=== PATIENT | female | born 1980 | race Caucasian/White ===

== ENCOUNTER → 2024-06-12 | Outpatient (CLI) | payer BC, SELFPAY ==
[2024-06-12 08:39] LABS: Basophils % (Auto) 0 % (0-2.5); Eosinophils # (Auto) 0.1 Thou/mm3 (0.0-0.5); Eosinophils % (Auto) 1 % (0-10); Hematocrit 42.8 % (36.0-46.0); Hemoglobin 15.7 g/dL (12.0-16.0); Immature Granulocytes % (Auto) 1 % (0-0); Immature Granulocytes Auto 0.03 Thou/mm3 (0.00-0.00); Lymphocytes # (Auto) 1.6 Thou/mm3 (1.0-4.8); Lymphocytes % (Auto) 27 % (10-50); Mean Corpuscular HGB Conc 36.7 g/dl (31.0-37.0); Mean Corpuscular Volume 85 fL (80-100); Monocytes # (Auto) 0.4 Thou/mm3 (0.0-0.8); Monocytes % (Auto) 6 % (0-12); Neutrophils # (Auto) 3.9 Thou/mm3 (1.8-7.7); Neutrophils % (Auto) 65 % (37-80); Nucleated Red Blood Cell % 0 /100 WBC (0); Platelet Count 261 Thou/mm3 (140-440); RDW Standard Deviation 36.8 fL (36.4-46.3); Red Blood Count 5.06 Miln/mm3 (4.00-5.20)
[2024-06-12 08:59] LABS: Glucose Estimated Average 243 mg/dL (80-131); Hemoglobin A1C 10.1 % Hgb (4.8-6.0)
[2024-06-12 10:03] LABS: Alanine Aminotransferase 29 U/L (10-49); Albumin, Serum 4.4 gm/dL (3.5-5.0); Albumin/Globulin Ratio 1.7 (1.2-2.2); Alkaline Phosphatase 66 U/L (46-116); Anion Gap 10 (7-16); Aspartate Amino Transferase 29 U/L (0-34); BUN/Creatinine Ratio 11 Ratio (12-20); Bilirubin,Total 0.9 mg/dL (0.3-1.2); Blood Urea Nitrogen 9 mg/dL (9-23); Calcium 8.8 mg/dL (8.3-10.6); Calcium (Corrected) 8.8 mg/dL (8.5-10.1); Carbon Dioxide 22.6 mMol/L (20.0-31.0); Cardiac Risk Estimate 4.3 RATIO (3.7-5.6); Chloride 102 mMol/L (98-107); Cholesterol 207 mg/dL (132-200); Creatinine (Component) 0.8 mg/dL (0.6-1.3); Globulin 2.6 gm/dL (2.3-3.5); Glucose 382 mg/dL (74-106); HDL Cholesterol 48 mg/dL (40-60); LDL Cholesterol,Calculated 132 mg/dL (0-130); Osmolality,Calculated 284 (275-295); Potassium 4.4 mMol/L (3.4-5.1); Sodium 135 mMol/L (136-145); Thyroid Stimulating Hormone 1.19 uIU/mL (0.55-4.78); Triglycerides 135 mg/dL (30-150); Uric Acid 3.8 mg/dL (3.1-7.8); eGFR > 60 See Note
[2024-06-12 10:06] LABS: Vitamin B12 410 pg/mL (211-911); Vitamin D 25 Hydroxy Total 32.9 ng/mL (7.3-40.2)
== END | disposition home or self-care (01) ==
PROVIDERS: PCP Internal Medicine; Referring Provider Internal Medicine; Visit Provider Internal Medicine
DX: Z00.00 Encounter for general adult medical examination without abnormal findings (principal); E11.9 Type 2 diabetes mellitus without complications; I10 Essential (primary) hypertension
CPT/HCPCS: 36415; 80053; 80061; 81001; 82043; 82306; 82570; 82607; 83036; 84443; 84550; 85025

== ENCOUNTER 2024-10-28 15:13 | Emergency (ER) | payer BC, SELFPAY ==
[2024-10-28 15:14] VITALS: BMI 36.8
[2024-10-28 15:32] VITALS: BP 161/90; PULSE 98; RESP 18; TEMP 37.3; O2SAT 96; BMI 36.8
--- NOTE | 2024-10-28 15:49 | XR_ITS ---
Examination: Abdomen sonogram, Limited Date and time of exam: October 28, 2024 1559 hours INDICATIONS: Right upper abdominal pain beginning 4 months ago Technique: Real-time fierro scale transabdominal sonographic images of the upper abdomen obtained. Findings: Normal gallbladder. Normal common bile duct 0.3 cm Pancreatic head 3.1 cm Liver 19.6 cm fatty infiltration no focal liver lesions Normal hepatopedal portal venous flow Patent IVC IMPRESSION: Normal gallbladder Normal common bile duct Moderate hepatomegaly
--- NOTE | 2024-10-28 15:50 | EDNOTE_ITS ---
ED Abdominal Pain RME/HPI General Chief Complaint: Abdominal Pain Stated complaint: RIGHT FLANK PAIN Time seen by provider: 10/28/24 15:31 Arrival date/time: 10/28/24 15:13 Source: patient, RN notes reviewed and old records reviewed Mode of arrival: ambulatory Limitations: no limitations RME / HPI RME / HPI narrative: 44yof presents to ED for intermittent RUQ abdominal pain radiating to right side back since June. No specific triggers or exacerbating factors. Patient denies fever, shortness of breath, chest pain, nausea/vomiting or urinary symptoms. No medications or treatments since symptom onset. Patient has outpatient CT abdomen/pelvis and GI appointment scheduled. Declines pain medication in ED today. Related Data Home Medications ?Medication ?Instructions ?Recorded ?Confirmed losartan 50 mg-hydrochlorothiazide 1 tab PO QDAY 03/2103/21/22 12.5 mg tablet metformin 500 mg tablet 500 mg PO BID 03/21/2203/21 propranolol 20 mg tablet 20 mg PO HS 03/21/22 3 Previous Rx's ?Medication ?Instructions ?Recorded dicyclomine 20 mg tablet 20 mg PO Q6HR PRN abdominal pain 10/28/24 #20 tabs ibuprofen 600 mg tablet 600 mg PO Q6H PRN pain #20 t abs 10/28/24 Allergies Allergy/AdvReac Type Severity Reaction Status Date / Time Penicillins Allergy Unknown Verified 10/28/24 15:17 Review of Systems Review of Systems Systems Reviewed: All systems reviewed, normal except as documented Constitutional Constitutional: Denies chills and Denies fever(s) Cardiovascular Cardiovascular: Denies chest pain and Denies dyspnea Respiratory Respiratory: Denies dyspnea Gastrointestinal Gastrointestinal: Reports abdominal pain, Denies nausea and Denies vomiting Genitourinary Genitourinary: Denies dysuria, Denies flank pain and Denies hematuria Integumentary/Breasts Skin/Breast: Denies rash Past Medical History Past Medical History CARDIAC: Positive Hypertension GASTROINTESTINAL: Positive Obesity ENDOCRINE: Positive Diabetes Mellitus Type 2 Surgical History OTHER SURGICAL HX: denies pshx Social History SMOKING STATUS: Never smoker SUBSTANCE USE: does not use ALCOHOL: Never ED Exam General Limitations: Present no limitations General appearance: Present alert and in no apparent distress Head Head exam: Present atraumatic and normocephalic Eye Eye exam: Present normal appearance, PERRL and EOMI ENT ENT exam: Present normal exam and mucous membranes moist Neck Neck exam: Present normal inspection and full ROM Chest Chest inspection: Present normal inspection and symmetric chest wall rise Respiratory Respiratory exam: Present normal lung sounds bilaterally; Absent respiratory distress Cardiovascular Cardiovascular exam: Present regular rate and normal rhythm Abdominal Exam Abdominal exam: Present soft; Absent distention, tenderness, guarding or rebound Extremities Exam Extremities exam: Present normal inspection and full ROM Back Exam Back exam: Absent CVA tenderness (R) or CVA tenderness (L) Neurological Exam Neurological exam: Present alert and oriented X3 Psychiatric Psychiatric exam: Present normal affect and normal mood Skin Skin exam: Present warm, dry, intact and normal color; Absent rash Course Quality Measures none Orders Category Date Time Status US gall bladder Stat Exams 10/28/24 15:49 Completed Amylase Stat Lab 10/28/24 16:24 Completed CBC Stat Lab 10/28/24 16:24 Completed CMP [Comprehensive Metabolic Panel] Stat Lab 10/28/24 16:24 Completed HCG Qualitative,Urine Stat Lab 10/28/24 16:10 Completed UA [Urinalysis] Stat Lab 10/28/24 16:10 Completed Vital Signs Vital signs: Vital Signs Temperature 99.2 F 10/28/24 15:32 Pulse Rate 98 10/28/24 15:32 Respiratory Rate 18 10/28/24 15:32 Blood Pressure 161/90 H 10/28/24 15:32 Pulse Oximetry (%) 96 10/28/24 15:32 Oxygen Delivery Method Room Air 10/28/24 15:32 Abdominal Pain MDM MDM Narrative MDM Narrative:: 44yof presents to ED for intermittent RUQ abdominal pain radiating to right side back since June. No specific triggers or exacerbating factors. Patient denies fever, shortness of breath, chest pain, nausea/vomiting or urinary symptoms. No medications or treatments since symptom onset. Patient has outpatient CT abdomen/pelvis and GI appointment scheduled. Declines pain medication in ED today. Patient updated on labs, imaging. ED workup and exam reassuring. Encouraged close follow-up with PCP and GI as scheduled. Stable for discharge, RTED precautions given. Patient data External records reviewed:: [facility] previous records ( ED visit for chest pain) Clinical information provided by:: patient Social determinants that could affect healthcare access:: none Patient has the following chronic illnesses:: Hypertension, diabetes, obesity How is presenting disease/condition affected by chronic disease/condition?: exacerbated by Evaluation data The following diagnostics were reviewed and interpreted by me:: lab results and radiology exam(s) Lab and/or radiology exams considered but not ordered:: CT abdomen/pelvis: Low suspicion for acute process with symptoms present since June Interpretation Summary: Gallbladder US: no gallstones per my read UA -leuks/nitrites hcg negative No leukocytosis No anemia LFTs and amylase wnl Medications / Prescriptions Medications or Prescriptions considered but not ordered:: No antibiotics recommended at this time Medication administrations:: None Consultations Consultation(s) initiated? (list below): No Diagnosis Differential diagnosis abdominal pain: other (Cholelithiasis, cholecystitis, gastritis, PUD, constipation, gastroenteritis, nonspecific abdominal pain, renal colic, kidney stone) Most likely diagnosis given after review of the tests above:: abdominal pain Admission Indicated Admission indicated?: not indicated Admission Request Was there a request for admission?: No Disposition Plan Disposition Plan: Discharge Discharge Attestation Discharge Attestation: The patient and all family members were given an opportunity to ask questions and understood the discharge instructions. Discharge instructions specifically effects, indications for sooner follow up or return to the emergency department, and the expected course of current diagnosis. Patient condition: Stable Discharge Plan Plan Patient Disposition: HOME (Self Care) Patient condition on transfer: Stable Prescriptions/Referrals Prescriptions/Med Rec: New ibuprofen 600 mg tablet 600 mg PO Q6H PRN (Reason: pain) Qty: 20 0RF dicyclomine 20 mg tablet 20 mg PO Q6HR PRN (Reason: abdominal pain) Qty: 20 0RF No Action metformin 500 mg tablet 500 mg PO BID losartan-hydrochlorothiazide 50-12.5 mg tablet 1 tab PO QDAY propranolol 20 mg tablet 20 mg PO HS Patient Comments: TAKE 1 TABLET BY MOUTH EVERYDAY AT BEDTIME Referrals: Katey Ibarra MD [Primary Care Provider, Nephrology] - In 1 week Problem List Clinical Impression: Abdominal pain Patient/Caregiver Discharge Instructions Education Materials: Abdominal Pain Additional Instructions: Follow-up with your PCP and GI as scheduled. Ibuprofen or Tylenol can be taken as needed for pain. Print Language: [place]an Stand Alone Forms: Peggy Award Info., Work/School Release, Patient Portal Info Letter PA/CORPORATE TRAINING MANAGER Supervising Physician PA/CORPORATE TRAINING MANAGER Supervising Physician: Hilario
[2024-10-28 16:22] LABS: Collection Type, Urine Clean Catch
[2024-10-28 16:31] LABS: Bilirubin,Urine Negative (Negative); Blood,Urine Negative (Negative); Clarity,Urine Clear (Clear/Hazy); Color,Urine Yellow (Lt Yel-Yel); Glucose, Urine 1+ (Negative); Ketones,Urine Negative (Negative); Leukocyte Esterase,Urine Negative (Negative); Nitrite,Urine Negative (Negative); PH,Urine 6.5 (5.0-7.0); Protein,Urine Trace (Neg - Trace); RBC,Urine 3 /hpf (0-3); Specific Gravity,Urine 1.029 (1.001-1.035); Squamous Epithelial Cell,Urine < 1 /hpf (0-5); Urobilinogen,Urine Negative mg/dL (0.0-1.0); WBC,Urine 1 /hpf (0-5)
[2024-10-28 16:39] LABS: HCG Qualitative,Urine Negative
[2024-10-28 16:39] LABS: Basophils # (Auto) 0.0 Thou/mm3 (0.0-0.2); Basophils % (Auto) 0 % (0-2.5); Eosinophils # (Auto) 0.2 Thou/mm3 (0.0-0.5); Eosinophils % (Auto) 2 % (0-10); Hematocrit 41.2 % (36.0-46.0); Hemoglobin 15.1 g/dL (12.0-16.0); Immature Granulocytes Auto 0.04 Thou/mm3 (0.00-0.00); Lymphocytes # (Auto) 2.6 Thou/mm3 (1.0-4.8); Lymphocytes % (Auto) 25 % (10-50); Mean Corpuscular HGB Conc 36.7 g/dl (31.0-37.0); Mean Corpuscular Hemoglobin 30.8 pg (25.0-35.0); Mean Corpuscular Volume 84 fL (80-100); Monocytes # (Auto) 0.6 Thou/mm3 (0.0-0.8); Monocytes % (Auto) 6 % (0-12); Neutrophils # (Auto) 6.9 Thou/mm3 (1.8-7.7); Neutrophils % (Auto) 67 % (37-80); Nucleated Red Blood Cell # 0.00 Thou/mm3 (0.00-0.00); Nucleated Red Blood Cell % 0 /100 WBC (0); Platelet Count 275 Thou/mm3 (140-440); RDW Standard Deviation 36.6 fL (36.4-46.3); Red Blood Count 4.90 Miln/mm3 (4.00-5.20); White Blood Count 10.3 Thou/mm3 (3.6-11.0)
[2024-10-28 16:52] LABS: Alanine Aminotransferase 25 U/L (10-49); Albumin, Serum 4.6 gm/dL (3.5-5.0); Albumin/Globulin Ratio 1.8 (1.2-2.2); Alkaline Phosphatase 67 U/L (46-116); Amylase 49 U/L (30-118); Anion Gap 9 (7-16); Aspartate Amino Transferase 15 U/L (0-34); BUN/Creatinine Ratio 10 Ratio (12-20); Bilirubin,Total 0.9 mg/dL (0.3-1.2); Blood Urea Nitrogen 8 mg/dL (9-23); Calcium 10.0 mg/dL (8.3-10.6); Calcium (Corrected) 10.0 mg/dL (8.5-10.1); Carbon Dioxide 28.6 mMol/L (20.0-31.0); Chloride 99 mMol/L (98-107); Creatinine (Component) 0.8 mg/dL (0.6-1.3); Estimated Creatinine Clearance 111.6 mL/min (>60); Globulin 2.5 gm/dL (2.3-3.5); Glucose 229 mg/dL (74-106); Osmolality,Calculated 279 (275-295); Potassium 3.6 mMol/L (3.4-5.1); Sodium 137 mMol/L (136-145); Total Protein 7.1 gm/dL (5.7-8.2); eGFR > 60 See Note
== END 2024-10-28 17:09 | disposition home or self-care (01) ==
PROVIDERS: Physician Assistant; Emergency Provider Emergency Medicine; PCP Internal Medicine
DX: R10.11 Right upper quadrant pain (principal)
CPT/HCPCS: 36415; 76705; 80053; 81001; 81025; 82150; 85025; 99283

== ENCOUNTER 2025-01-07 08:00 | Day surgery (SDC) | payer BC, SELFPAY ==
[2025-01-05 15:27] LABS: HCG Qualitative,Urine Negative
[2025-01-07] VITALS (9 sets, daily range): BP systolic 128–163; BP diastolic 78–104; PULSE 84–104; RESP 12–25; TEMP 36.5–36.9; O2SAT 93–100; BMI 36.3
[2025-01-07] MEDS: SODIUM CHLORIDE 0.9% 500 ML 500 ML 20 ML IV (10:38)
[2025-01-07] MEDS: fentaNYL CIT INJ 50 mCg/ML AMP 2ML (ASD USE ONLY) IVP (10:41)
[2025-01-07] MEDS: MEPERIDINE INJ 50 MG/ML VIAL 25 MG IVP (10:45)
[2025-01-07] MEDS: MIDAZOLAM INJ 1 MG/ML VIAL 2 ML (ASD USE ONLY) 2 MG IVP (10:45)
== END 2025-01-07 11:38 | disposition home or self-care (01) ==
PROVIDERS: PCP Internal Medicine; Referring Provider Specialist; Visit Provider Specialist
PROC: 0DBE8ZX Excision of Large Intestine, Via Natural or Artificial Opening Endoscopic, Diagnostic (ICD-10-PCS; CPT 45380; principal; 2025-01-07 09:30)
DX: K64.1 Second degree hemorrhoids (principal); R19.4 Change in bowel habit; I10 Essential (primary) hypertension; E11.9 Type 2 diabetes mellitus without complications; Z79.84 Long term (current) use of oral hypoglycemic drugs; Z79.899 Other long term (current) drug therapy
CPT/HCPCS: 45378; 81025; J1200; J2175; J2250; J3010; J7999